=== PATIENT | female | born 1945 | race Caucasian/White ===

== ENCOUNTER → 2021-10-03 | Outpatient (CLI) | payer MEDICARE ==
[~2021-10-03] MED LIST: AMLODIPINE BESY10 MG PO; COREG6.25 MG PO; HYDRALAZINE HC100 MG PO; JARDIANCE10 MG PO; LANTUS SOL100 UNIT/1 SQ; LISINOPRIL2.5 MG PO; MINIPRESS CAP 11 MG PO; OCUVITE EYE PL1 EACH PO; OZEMPIC0.25 MG/0. SQ; PEPCID40 MG PO; SPIRONOLACTONE25 MG PO; ST. JOSEPH ASPI81 M1 PO; SYNTHROID100 MCG PO; ZOCOR40 MG PO
[2021-10-03 10:21] LABS: HEMOGLOBIN 14.7 gm/dl (12.3-15.3); RED BLOOD COUNT 4.66 M/UL (4.00-5.10)
== END ==
LOC: OPSV2 09:30
PROVIDERS: Orthopaedic Surgery
DX: Z01.818 Encounter for other preprocedural examination (principal); G56.01 Carpal tunnel syndrome, right upper limb; Z88.5 Allergy status to narcotic agent; I10 Essential (primary) hypertension; E78.00 Pure hypercholesterolemia, unspecified; E11.9 Type 2 diabetes mellitus without complications
CPT/HCPCS: 36415; 80048; 83036; 85027; 93005

== ENCOUNTER → 2021-10-11 | Day surgery (SDC) | payer MEDICARE ==
[~2021-10-11] VITALS: Ht 172.7 cm; Wt 68.9 kg
[~2021-10-11] MED LIST changes: +ULTRAM50 MG PO
== END | disposition home or self-care (01) ==
LOC: OR 08:58
DX: G56.01 Carpal tunnel syndrome, right upper limb (principal); E78.5 Hyperlipidemia, unspecified; I12.9 Hypertensive chronic kidney disease with stage 1 through stage 4 chronic kidney disease, or unspecified chronic kidney disease; E11.22 Type 2 diabetes mellitus with diabetic chronic kidney disease; E05.00 Thyrotoxicosis with diffuse goiter without thyrotoxic crisis or storm; K21.9 Gastro-esophageal reflux disease without esophagitis; Z96.652 Presence of left artificial knee joint; Z90.49 Acquired absence of other specified parts of digestive tract; Z88.5 Allergy status to narcotic agent; N18.30 Chronic kidney disease, stage 3 unspecified; Z79.4 Long term (current) use of insulin; Z20.822 Contact with and (suspected) exposure to COVID-19
CPT/HCPCS: 82962; J0690; J2704; J3010; J7030; J7120

== ENCOUNTER → 2021-12-12 | Outpatient (CLI) | payer MEDICARE | LOC: EXRD 11:28 | DX: E21.0 Primary hyperparathyroidism (principal); M81.0 Age-related osteoporosis without current pathological fracture | CPT/HCPCS: 77080 ==